=== PATIENT | male | born 1960 | race Caucasian/White ===

== ENCOUNTER 2017-01-15 15:11 | Inpatient (IN) | payer BC ==
[2017-01-15] MEDS ORDERED: Albuterol-Ipratrop 3 mg / 0.5 (3 ml) UD IH STA (15:48)
[2017-01-15] MEDS ORDERED: Albuterol-Ipratrop 3 mg / 0.5 (3 ml) UD ONE (16:04)
[2017-01-15 16:08] LABS: BASO # 0.1 K/uL (0.0-0.2); BASO % 0.4 % (0.0-2.0); EOS # 0.1 K/uL (0.0-0.7); HEMATOCRIT 41.8 % (35.0-51.0); LYMPH # 2.1 K/uL (1.0-4.3); LYMPH % 15.3 % (20.0-40.0); MEAN CELL VOLUME 88.7 fL (80.0-94.0); MEAN CORPUSCULAR HEMOGLOBIN 29.2 pg (27.0-31.0); MEAN PLATELET VOLUME 7.2 fL (7.2-11.7); MONO # 2.4 K/uL (0.0-0.8); MONO % 17.8 % (0.0-10.0); NRBC % 0.1 % (0.0-2.0); RED CELL DISTRIBUTION WIDTH 12.5 % (11.5-14.5)
[2017-01-15 16:09] LABS: WHITE BLOOD COUNT 13.6 K/uL (4.8-10.8)
[2017-01-15 16:21] LABS: DRAW SITE LBA
[2017-01-15 16:21] LABS: ALKALINE PHOSPHATASE 87 U/L (38-126); ALT/SGPT 38 U/L (21-72); AST/SGOT 26 U/L (17-59); BILIRUBIN,TOTAL 0.7 mg/dL (0.2-1.3); BLOOD UREA NITROGEN 13 mg/dL (9-20); CALCIUM 8.9 mg/dl (8.6-10.4); CARBON DIOXIDE 31 mmol/L (22-30); CHLORIDE 92 mmol/L (98-107); GFR AFRICAN-AMERICAN > 60; GLUCOSE,RANDOM 86 mg/dL (75-110); POTASSIUM 4.2 mmol/L (3.6-5.2); SODIUM 133 mmol/L (132-148); TOTAL PROTEIN 8.3 g/dL (6.3-8.3)
[2017-01-15 16:22] LABS: ALB/GLOB RATIO 1.1 (1.0-2.1)
[2017-01-15] MEDS ORDERED: Vancomycin 1 gm/NS 200 ml 1 GM/200 ML BAG IVPB STA (17:18)
[2017-01-15] MEDS ORDERED: Piperacillin/Tazobact 3.375 gm 100 ML IVPB STA (17:18)
--- NOTE | 2017-01-15 17:24 | C.PDOC ---
Time Seen by Provider: 01/15/17 15:37 Chief Complaint (Nursing): Shortness Of Breath History Per: Patient, Family Onset/Duration Of Symptoms: Days (1 week) Current Symptoms Are (Timing): Worse Current Respiratory Medications: See Home Med List Severity: Severe Associated Symptoms: Productive Cough Additional History Per: Prior Records Past Medical History Reviewed: Historical Data, Nursing Documentation, Vital Signs Vital Signs: Last Vital Signs Temp 99.1 F 01/15/17 15:22 Pulse 113 H 01/15/17 16:33 Resp 30 H 01/15/17 16:33 BP 138/81 01/15/17 15:22 Pulse Ox 88 L 01/15/17 17:24 - Medical History PMH: Anxiety, Asthma, COPD, Emphysema, HTN, Pneumonia Other PMH: Bronchiectasis - [facility] Procedures INFLUENZA VACCINATION (11/13/13) NEBULIZER THERAPY (06/28/14) VACCINATION NEC (11/13/13) Family History: States: Unknown Family Hx - Social History Hx Tobacco Use: No Hx Alcohol Use: No Hx Substance Use: No - Immunization History Hx Tetanus Toxoid Vaccination: No Hx Influenza Vaccination: Yes Hx Pneumococcal Vaccination: No Review Of Systems Except As Marked, All Systems Reviewed And Found Negative. Constitutional: Positive for: Fever, Chills, Malaise ENT: Negative for: Nose Congestion, Throat Pain Cardiovascular: Negative for: Chest Pain Respiratory: Positive for: Cough, Shortness of Breath, Sputum. Negative for: Hemoptysis Gastrointestinal: Negative for: Vomiting, Abdominal Pain Musculoskeletal: Positive for: Back Pain (right upper). Negative for: Neck Pain , Leg Pain Skin: Negative for: Rash Neurological: Negative for: Weakness, Numbness Physical Exam - Physical Exam Appears: In Acute Distress, Chronically Ill Skin: Normal Color, Warm, Dry Head: Atraumatic, Normacephalic Eye(s): bilateral: PERRL, EOMI Neck: Normal ROM, Supple Cardiovascular: Rhythm Regular Respiratory: No Accessory Muscle Use, Rhonchi Gastrointestinal/Abdominal: Soft, No Tenderness Back: No CVA Tenderness Extremity: Normal ROM, No Calf Tenderness Neurological/Psych: Oriented x3, Normal Motor, Normal Sensation ED Course And Treatment - Laboratory Results Result Diagrams: 01/15/17 16:00 01/15/17 16:00 Lab Interpretation: Abnormal Interpretation Of Abnormal: Mild leukocytosis. O2 Sat by Pulse Oximetry: 88 Pulse Ox Interpretation: Abnormal Interpretation Of Abnormal: Hypoxia on RA - Radiology CXR: Interpreted by Me, Viewed By Me CXR Interpretation: Yes: Infiltrates Progress - Interventions Interventions:: Observation, Oxygen - Medications Administered Inhaled nebulized: Anticholinergic, Beta-2 agonist Intravenous: Corticosteroid, Other (Abx) - Data Reviewed Data Reviewed: Lab, Diagnostic imaging, Old records - Patient Status Patient status: Partially improved - Continuity of Care Discussed patient case with:: Patient, Family-HIPPA compliant, ED Nurse, PMD - Patient Plan Patient Plan: Admission Disposition Discussed With DrJose: Georgia Christopher Comment: He accepted pt on his service and wanted pt to received Solumedrol 125mg IV and be started on Zosyn and Vancomycin. Doctor Will See Patient In The: Hospital Counseled Patient/Family Regarding: Studies Performed, Diagnosis - Disposition Disposition: HOSPITALIZED Disposition Time: 17:26 Condition: GUARDED - Clinical Impression Clinical Impression: Bronchiectasis with acute exacerbation, Acute lower respiratory tract infection
[2017-01-15] MEDS: Piperacill/Tazo 3.375gm in Dex 3.375 GM/50 ML BAG IVPB STA ×2 (17:45→17:48)
--- NOTE | 2017-01-15 17:46 | RAD ---
PROCEDURE: CHEST RADIOGRAPH, 1 VIEW. HISTORY: SOB, productive cough, h/o bronchiectasis COMPARISON: Comparison made with prior chest radiograph 04/20/[address] scan chest dated 11/08/2013. FINDINGS: LUNGS: Bronchiectasis again seen in the mid to lower lung arechiga including the middle lobe, lingular region as well as right anterior upper lobe. Note these findings are seen to much better advantage on prior high-resolution CT scan. Changes are somewhat more confluent in the lower lung arechiga right greater than left which could be secondary to poor inspiration however superimposed pneumonia cannot be excluded. PLEURA: No pneumothorax or pleural fluid seen. CARDIOVASCULAR: Normal. OSSEOUS STRUCTURES: No significant abnormalities. VISUALIZED UPPER ABDOMEN: Normal. OTHER FINDINGS: None. IMPRESSION: Bronchiectasis again seen in the mid to lower lung arechiga including the middle lobe, lingular region as well as right anterior upper lobe. Note these findings are seen to much better advantage on prior high-resolution CT scan. Changes are somewhat more confluent in the lower lung arechiga right greater than left which could be secondary to poor inspiration however superimposed pneumonia cannot be excluded
[2017-01-15] MEDS: Piperacill/Tazo 3.375gm in Dex 3.375 GM/50 ML BAG IVPB SCH (17:48)
--- NOTE | 2017-01-15 18:09 | CP.PCM.CON ---
History of Present Illness - History of Present Illness History of Present Illness: reason for consultation: shortness of breath, productive cough Patient is a 56-year-old male with history of end-stage bronchiectasis on home oxygen, COPDpresented to emergency room with worsening shortness of breath and cough productive off purulent sputum for the past few days. Denies fever chills. Chest x-ray consistent with right lower lung pneumonia Review of Systems - Review of Systems All systems: reviewed and no additional remarkable complaints except (shortness of breath and productive cough) Past Patient History - Infectious Disease Hx of Infectious Diseases: None - Past Medical History & Family History Past Medical History?: Yes - Past Social History Smoking Status: Never Smoked - CARDIAC Hx Hypertension: Yes - PULMONARY Hx Asthma: Yes Hx Chronic Obstructive Pulmonary Disease (COPD): Yes Hx Emphysema: Yes Hx Pneumonia: Yes - NEUROLOGICAL Hx Neurological Disorder: No - HEENT Hx HEENT Problems: No - RENAL Hx Chronic Kidney Disease: No - ENDOCRINE/METABOLIC Hx Endocrine Disorders: No - HEMATOLOGICAL/ONCOLOGICAL Hx Blood Disorders: No - INTEGUMENTARY Hx Dermatological Problems: No - MUSCULOSKELETAL/RHEUMATOLOGICAL Hx Musculoskeletal Disorders: No - GASTROINTESTINAL Hx Gastrointestinal Disorders: No - GENITOURINARY/GYNECOLOGICAL Hx Genitourinary Disorders: No - PSYCHIATRIC Hx Anxiety: Yes Hx Substance Use: No - SURGICAL HISTORY Hx Surgeries: Yes Hx Orthopedic Surgery: Yes (dental and jaw surgery) - ANESTHESIA Hx Anesthesia: Yes Hx Anesthesia Reactions: No Hx Malignant Hyperthermia: No Meds Allergies/Adverse Reactions: Allergies Allergy/AdvReac Type Severity Reaction Status Date / Time No Known Allergies Allergy Verified 01/15/17 15:28 - Medications Medications: Current Medications Vancomycin/Sodium Chloride (Vancomycin 1 Gm/Ns 200 Ml) 1 gm in 200 mls @ 166.667 mls/hr IVPB STAT [facility] Stop: 01/15/17 18:29 Physical Exam - Head Exam Head Exam: ATRAUMATIC, NORMOCEPHALIC - ENT Exam ENT Exam: Mucous Membranes Moist - Neck Exam Neck exam: Positive for: Normal Inspection - Respiratory Exam Respiratory Exam: Rales Results - Vital Signs Recent Vital Signs: Last Vital Signs Temp 99.1 F 01/15/17 15:22 Pulse 115 H 01/15/17 17:34 Resp 28 H 01/15/17 17:34 BP 111/69 01/15/17 17:34 Pulse Ox 95 01/15/17 17:34 - Labs Result Diagrams: 01/15/17 16:00 01/15/17 16:00 Labs: Laboratory Results - last 24 hr 01/15/17 01/15/17 01/15/17 15:46 16:00 16:00 WBC 13.6 H D RBC 4.71 Hgb 13.8 Hct 41.8 MCV 88.7 MCH 29.2 MCHC 33.0 RDW 12.5 Plt Count 545 H D MPV 7.2 Neut % (Auto) 65.5 Lymph % (Auto) 15.3 L [place] % (Auto) 17.8 H Eos % (Auto) 1.0 Baso % (Auto) 0.4 Neut # 8.9 H Lymph # 2.1 [place] # 2.4 H Eos # 0.1 Baso # 0.1 Puncture Site pCO2 pO2 HCO3 ABG pH ABG Total CO2 ABG O2 Saturation ABG Base Excess Hima Test ABG Potassium A-a O2 Difference Respiratory Index Glucose Lactate Liter Flow FiO2 Sodium 133 Potassium 4.2 Chloride 92 L Carbon Dioxide 31 H Anion Gap 15 BUN 13 Creatinine 0.9 Est GFR ( Amer) > 60 Est GFR (Non-Af Amer) > 60 Random Glucose 86 Calcium 8.9 Total Bilirubin 0.7 AST 26 ALT 38 Alkaline Phosphatase 87 Troponin I < 0.0120 NT-Pro-B Natriuret Pep 183 Total Protein 8.3 Albumin 4.3 Globulin 4.0 H Albumin/Globulin Ratio 1.1 Arterial Blood Potassium Influenza Typ A,B (EIA) Negative for flu a/b 01/15/17 16:15 WBC RBC Hgb Hct MCV MCH MCHC RDW Plt Count MPV Neut % (Auto) Lymph % (Auto) [place] % (Auto) Eos % (Auto) Baso % (Auto) Neut # Lymph # [place] # Eos # Baso # Puncture Site Lba pCO2 50 H pO2 211 H HCO3 28.9 H ABG pH 7.40 ABG Total CO2 32.5 H ABG O2 Saturation 98.7 H ABG Base Excess 5.0 H Hima Test Na ABG Potassium 3.8 A-a O2 Difference -38.0 Respiratory Index -0.2 Glucose 90 Lactate 1.2 Liter Flow 3.0 FiO2 33.0 Sodium 136.0 Potassium Chloride 103.0 Carbon Dioxide Anion Gap BUN Creatinine Est GFR ( Amer) Est GFR (Non-Af Amer) Random Glucose Calcium Total Bilirubin AST ALT Alkaline Phosphatase Troponin I NT-Pro-B Natriuret Pep Total Protein Albumin Globulin Albumin/Globulin Ratio Arterial Blood Potassium 3.8 Influenza Typ A,B (EIA) Assessment & Plan (1) Pneumonia Status: Acute (2) Bronchiectasis Status: Acute Priority: High (3) COPD exacerbation Status: Acute
[2017-01-15] MEDS: Albuterol-Ipratrop 3 mg / 0.5 (3 ml) UD INH SCH (19:00)
[2017-01-15] MEDS: MethylPREDNISolone 40 mg Vial IV SCH (22:29)
[2017-01-16] MEDS: Piperacill/Tazo 3.375gm in Dex 3.375 GM/50 ML BAG IVPB SCH ×3 (01:33→18:09)
[2017-01-16] MEDS: Albuterol-Ipratrop 3 mg / 0.5 (3 ml) UD INH SCH ×4 (02:27→19:49)
--- NOTE | 2017-01-16 05:34 | HP ---
HISTORY OF PRESENT ILLNESS: This is a 56-year-old male with history of longstanding obstructive lung disease and bronchiectasis. The patient presented to emergency room with symptoms of increasing shortness of breath, cough and production of sputum that has been progressive over the last 4 weeks. During the last 2 days prior to this admission, the patient was experiencing fever and chills. The patient was evaluated in the emergency room and admitted for further management. The patient had previous similar presentations and admissions to the hospital for the same problem. REVIEW OF SYSTEMS: Other review of system are negative. ALLERGIES: NO KNOWN ALLERGY. HOME MEDICATIONS: Clonazepam 0.5 mg three times a day as needed, multivitamin 1 tablet daily, Brovana by nebulizer every 6 hours and Ventolin MDI. SOCIAL HISTORY: No history of smoking, EtOH or substance abuse. FAMILY HISTORY: Not contributory. PAST MEDICAL HISTORY: As above. PHYSICAL EXAMINATION: GENERAL: The patient is in bed comfortable at the time of this examination. VITAL SIGNS: Blood pressure 104/57, temperature 98.1, respiratory rate 30 and pulse 103. HEENT: Pupils equal, reactive to light. Normal-appearing mucosa of the conjunctivae, oropharyngeal and nasal membrane mucosa. NECK: Supple. No JVD. No carotid bruit. No lymph node. No thyromegaly. CHEST AND LUNGS: Bilateral symmetrical expansion. Good air exchange. No rales. The patient has scattered rhonchi all over lung arechiga with coarse rales that change with cough. CARDIOVASCULAR SYSTEM: PMI not localized. S1 and S2. No additional sounds. ABDOMEN: Normoactive bowel sounds. No tenderness. No organomegaly. No masses. EXTREMITIES: No cyanosis, no clubbing, no edema. CENTRAL NERVOUS SYSTEM: Alert, awake, oriented x3. No neurological deficit could be appreciated. ASSESSMENT: 1. Bronchiectasis. 2. Exacerbation of chronic obstructive pulmonary disease. 3. Clinical pneumonia. PLAN: 1. We will start the patient on IV antibiotics, Zosyn and vancomycin. 2. Start Solu-Medrol. 3. Pulmonary consult. 4. Nebulizer treatment and chest PT. Georgia Christopher MD
[2017-01-16] MEDS: MethylPREDNISolone 40 mg Vial IV SCH ×3 (05:42→21:43)
[2017-01-16] MEDS: Vancomycin 1 gm/NS 200 ml 1 GM/200 ML BAG IVPB SCH ×2 (05:45→18:10)
[2017-01-16] MEDS: Enoxaparin 30 mg Syringe SC SCH (09:38)
--- NOTE | 2017-01-16 18:47 | CP.PCM.PN ---
Subjective - Date & Time of Evaluation Date of Evaluation: 01/16/17 Time of Evaluation: 17:20 - Subjective Subjective: patient seen and examined Feeling little better Still complaining of productive cough Less shortness of breath Afebrile Objective - Vital Signs/Intake and Output Vital Signs (last 24 hours): Temp Pulse Resp BP Pulse Ox 97.9 F 103 H 20 127/68 93 L 01/16/17 16:51 01/16/17 16:51 01/16/17 16:51 01/16/17 16:51 01/16/17 16:51 Intake and Output: 01/16/17 01/16/17 06:59 18:59 Intake Total 730 550 Balance 730 550 - Medications Medications: Current Medications Albuterol/Ipratropium (Duoneb 3 Mg/0.5 Mg (3 Ml) Ud) 3 ml INH RQ6 [facility] Last Admin: 01/16/17 13:13 Dose: 3 ml Clonazepam (Klonopin) 0.5 mg PO Q8H PRN PRN Reason: Anxiety Last Admin: 01/16/17 01:38 Dose: 0.5 mg Enoxaparin Sodium (Lovenox) 30 mg SC DAILY [facility] Last Admin: 01/16/17 09:38 Dose: 30 mg Famotidine (Pepcid) 20 mg IVP Q12 [facility] Last Admin: 01/16/17 09:38 Dose: 20 mg Vancomycin/Sodium Chloride (Vancomycin 1 Gm/Ns 200 Ml) 1 gm in 200 mls @ 133 mls/hr IVPB Q12H [facility] Stop: 01/21/17 06:01 Last Admin: 01/16/17 18:10 Dose: 133 mls/hr Piperacillin Sod/Tazobactam Sod (Zosyn 3.375 Gm Iv Premix) 3.375 gm in 50 mls @ 200 mls/hr IVPB Q8H [facility] Last Admin: 01/16/17 18:09 Dose: 200 mls/hr Methylprednisolone (Solu-Medrol) 40 mg IV Q8 [facility] Last Admin: 01/16/17 13:32 Dose: 40 mg - Labs Labs: 01/15/17 16:00 01/15/17 16:00 Assessment and Plan (1) Pneumonia Status: Acute (2) Bronchiectasis Status: Acute (3) COPD exacerbation Status: Acute
--- NOTE | 2017-01-16 20:24 | PN ---
DATE: 01/16/2017 SUBJECTIVE: He has wheezing and shortness of breath and cough which are generally improving. PHYSICAL EXAMINATION: VITAL SIGNS: Blood pressure is 127/68, temperature 97.9, respiratory rate 20, and pulse 103. HEENT: Pupils equal, reactive to light. Normal-appearing mucosa of the conjunctivae, oropharynx, and nasal membrane mucosa. NECK: Supple. No JVD. No carotid bruit. No lymph node. No thyromegaly. CHEST AND LUNGS: Bilateral symmetrical expansion. Good air exchange. Bilateral rhonchi scattered all over lung arechiga. CARDIOVASCULAR SYSTEM: PMI not localized. S1 and S2. No additional sounds. ABDOMEN: Normoactive bowel sounds. No tenderness. No organomegaly. No masses. EXTREMITIES: No cyanosis. No clubbing. No edema. CENTRAL NERVOUS SYSTEM: Alert, awake, oriented x3. No neurological deficit could be appreciated. ASSESSMENT: Exacerbation of chronic obstructive pulmonary disease, bronchiectasis, and pneumonia. PLAN: Continue current IV antibiotics, steroids, and bronchodilators. Discussed the patients' condition with construction administrator, Dr. Trinh, at the bedside. Georgia Christopher MD
[2017-01-17] MEDS: Piperacill/Tazo 3.375gm in Dex 3.375 GM/50 ML BAG IVPB SCH ×3 (01:35→17:38)
[2017-01-17] MEDS: Albuterol-Ipratrop 3 mg / 0.5 (3 ml) UD INH SCH ×4 (02:01→19:18)
[2017-01-17] MEDS: MethylPREDNISolone 40 mg Vial IV SCH ×3 (05:37→21:51)
[2017-01-17] MEDS: Vancomycin 1 gm/NS 200 ml 1 GM/200 ML BAG IVPB SCH ×2 (05:38→17:26)
[2017-01-17] MEDS: Enoxaparin 30 mg Syringe SC SCH (09:56)
--- NOTE | 2017-01-17 11:55 | CP.PCM.PN ---
Objective - Vital Signs/Intake and Output Vital Signs (last 24 hours): Temp Pulse Resp BP Pulse Ox 98.2 F 81 20 104/52 L 97 01/17/17 00:00 01/17/17 00:00 01/17/17 00:00 01/17/17 00:00 01/17/17 00:00 Intake and Output: 01/17/17 01/17/17 06:59 18:59 Intake Total 940 Balance 940 - Medications Medications: Current Medications Albuterol/Ipratropium (Duoneb 3 Mg/0.5 Mg (3 Ml) Ud) 3 ml INH RQ6 [facility] Last Admin: 01/17/17 07:31 Dose: Not Given Clonazepam (Klonopin) 0.5 mg PO Q8H PRN PRN Reason: Anxiety Last Admin: 01/17/17 03:00 Dose: 0.5 mg Enoxaparin Sodium (Lovenox) 30 mg SC DAILY [facility] Last Admin: 01/17/17 09:56 Dose: 30 mg Famotidine (Pepcid) 20 mg IVP Q12 [facility] Last Admin: 01/17/17 09:56 Dose: 20 mg Vancomycin/Sodium Chloride (Vancomycin 1 Gm/Ns 200 Ml) 1 gm in 200 mls @ 133 mls/hr IVPB Q12H [facility] Stop: 01/21/17 06:01 Last Admin: 01/17/17 05:38 Dose: 133 mls/hr Piperacillin Sod/Tazobactam Sod (Zosyn 3.375 Gm Iv Premix) 3.375 gm in 50 mls @ 200 mls/hr IVPB Q8H [facility] Last Admin: 01/17/17 09:55 Dose: 200 mls/hr Methylprednisolone (Solu-Medrol) 40 mg IV Q8 [facility] Last Admin: 01/17/17 05:37 Dose: 40 mg - Labs Labs: 01/15/17 16:00 01/15/17 16:00 Assessment and Plan (1) Pneumonia Status: Acute (2) Bronchiectasis Status: Acute (3) COPD exacerbation Status: Acute
[2017-01-17 12:10] LABS: BASO % 0.1 % (0.0-2.0); LYMPH # 0.8 K/uL (1.0-4.3); LYMPH % 3.3 % (20.0-40.0); MEAN CELL VOLUME 89.2 fL (80.0-94.0); MEAN CORPUSCULAR HEMOGLOBIN 29.7 pg (27.0-31.0); MEAN CORPUSCULAR HGB CONC 33.3 g/dL (33.0-37.0); MEAN PLATELET VOLUME 7.1 fL (7.2-11.7); MONO # 0.8 K/uL (0.0-0.8); MONO % 3.3 % (0.0-10.0); PLATELET COUNT 499 K/uL (130-400); RED CELL DISTRIBUTION WIDTH 12.3 % (11.5-14.5)
[2017-01-17 12:13] LABS: WHITE BLOOD COUNT 24.4 K/uL (4.8-10.8)
[2017-01-17 13:24] LABS: MYELOCYTE 1 % (0-0); NEUTROPHIL 84 % (50-75); TOTAL CELLS COUNTED 100
[2017-01-17 13:43] LABS: BLOOD UREA NITROGEN 16 mg/dL (9-20); GLUCOSE,RANDOM 154 mg/dL (75-110)
[2017-01-17 13:44] LABS: CALCIUM 8.5 mg/dl (8.6-10.4); CARBON DIOXIDE 30 mmol/L (22-30); CHLORIDE 97 mmol/L (98-107); GFR AFRICAN-AMERICAN > 60; POTASSIUM 4.3 mmol/L (3.6-5.2); SODIUM 135 mmol/L (132-148)
[2017-01-18] MEDS: Piperacill/Tazo 3.375gm in Dex 3.375 GM/50 ML BAG IVPB SCH ×3 (01:39→17:43)
[2017-01-18] MEDS: Albuterol-Ipratrop 3 mg / 0.5 (3 ml) UD INH SCH ×4 (02:18→19:34)
[2017-01-18] MEDS: MethylPREDNISolone 40 mg Vial IV SCH ×3 (06:00→21:49)
[2017-01-18] MEDS: Vancomycin 1 gm/NS 200 ml 1 GM/200 ML BAG IVPB SCH ×2 (06:03→17:45)
--- NOTE | 2017-01-18 07:09 | PN ---
DATE: 01/17/2017 SUBJECTIVE: He is not on any decrease shortness of breath and cough and expectoration. PHYSICAL EXAMINATION: VITAL SIGNS: Blood pressure 117/75, temperature 98.1, respiratory rate 20, and pulse 103. HEENT: Pupils equal, reactive to light. Normal-appearing mucosa of the conjunctivae, oropharynx, and nasal membrane mucosa. NECK: Supple. No JVD. No carotid bruit. No lymph node. No thyromegaly. CHEST AND LUNGS: Bilateral symmetrical expansion. Good air exchange. No rales. No rhonchi. CARDIOVASCULAR SYSTEM: PMI not localized. S1, S2. No additional sounds. ABDOMEN: Normoactive bowel sounds. No tenderness. No organomegaly. No masses. EXTREMITIES: No cyanosis. No clubbing. No edema. CENTRAL NERVOUS SYSTEM: Alert, awake, oriented x3. No neurological deficit could be appreciated. ASSESSMENT: Exacerbation of chronic obstructive pulmonary disease, history of bronchiectasis, and pneumonia. PLAN: Continue current steroids, bronchodilators as well as antibiotics. The patient is getting chest physiotherapy through vibrating vest. Continue further recommendation of manager of sustainability. Georgia Christopher MD
[2017-01-18] MEDS: Enoxaparin 30 mg Syringe SC SCH (10:22)
--- NOTE | 2017-01-18 15:49 | CP.PCM.PN ---
Subjective - Date & Time of Evaluation Date of Evaluation: 01/18/17 Time of Evaluation: 09:20 - Subjective Subjective: Patient seen and examined Breathing better with less shortness of breath and cough Afebrile On IV antibiotics, nebulizer treatment and steroids Getting vest therapy Objective - Vital Signs/Intake and Output Vital Signs (last 24 hours): Temp Pulse Resp BP Pulse Ox 98.5 F 91 H 20 128/68 96 01/18/17 08:00 01/18/17 08:00 01/18/17 08:00 01/18/17 08:00 01/18/17 08:00 Intake and Output: 01/18/17 01/18/17 06:59 18:59 Intake Total 2160 Output Total 500 Balance 1660 - Medications Medications: Current Medications Albuterol/Ipratropium (Duoneb 3 Mg/0.5 Mg (3 Ml) Ud) 3 ml INH RQ6 [facility] Last Admin: 01/18/17 14:26 Dose: 3 ml Clonazepam (Klonopin) 0.5 mg PO Q8H PRN PRN Reason: Anxiety Last Admin: 01/17/17 03:00 Dose: 0.5 mg Enoxaparin Sodium (Lovenox) 30 mg SC DAILY [facility] Last Admin: 01/18/17 10:22 Dose: 30 mg Famotidine (Pepcid) 20 mg IVP Q12 [facility] Last Admin: 01/18/17 09:54 Dose: 20 mg Vancomycin/Sodium Chloride (Vancomycin 1 Gm/Ns 200 Ml) 1 gm in 200 mls @ 133 mls/hr IVPB Q12H [facility] Stop: 01/18/17 20:00 Last Admin: 01/18/17 06:03 Dose: 133 mls/hr Piperacillin Sod/Tazobactam Sod (Zosyn 3.375 Gm Iv Premix) 3.375 gm in 50 mls @ 200 mls/hr IVPB Q8H [facility] Last Admin: 01/18/17 09:57 Dose: 200 mls/hr Vancomycin HCl 1 gm/ Sodium (Chloride) 250 mls @ 166.667 mls/hr IVPB Q12H [facility] Stop: 01/21/17 06:01 Methylprednisolone (Solu-Medrol) 40 mg IV Q8 [facility] Last Admin: 01/18/17 14:25 Dose: 40 mg - Labs Labs: 01/17/17 11:48 11/27/17 11:48 - Head Exam Head Exam: ATRAUMATIC, NORMOCEPHALIC - Eye Exam Eye Exam: Normal appearance - ENT Exam ENT Exam: Mucous Membranes Moist - Neck Exam Neck Exam: Normal Inspection - Respiratory Exam Respiratory Exam: Rales - Cardiovascular Exam Cardiovascular Exam: REGULAR RHYTHM - GI/Abdominal Exam GI & Abdominal Exam: Soft, Normal Bowel Sounds Assessment and Plan (1) Pneumonia Assessment & Plan: Continue IV antibiotics Follow-up chest x-ray Taper IV steroids Nebulizer treatment Status: Acute (2) Bronchiectasis Status: Acute (3) COPD exacerbation Status: Acute
--- NOTE | 2017-01-18 23:25 | PN ---
DATE: 01/18/2017 SUBJECTIVE: Patient is seen today, 01/18/2017. He is still having cough with expectoration of white sputum. No fever. Positive exertional shortness of breath. PHYSICAL EXAMINATION: VITAL SIGNS: Blood pressure 132/61, temperature 98.2, respiratory rate 20, and pulse 97. HEENT: Pupils equal, reactive to light. Normal-appearing mucosa of the conjunctivae, oropharynx, and nasal membrane mucosa. NECK: Supple. No JVD. No carotid bruit. No lymph node. No thyromegaly. CHEST AND LUNGS: Bilateral symmetrical expansion. Good air exchange. No rales. Patient has scattered rhonchi all over lung arechiga. CARDIOVASCULAR SYSTEM: PMI not localized. S1, S2. No additional sounds. ABDOMEN: Normoactive bowel sounds. No tenderness. No organomegaly. No masses. EXTREMITIES: No cyanosis, no clubbing, no edema. CENTRAL NERVOUS SYSTEM: Alert, awake, oriented x3. No neurological deficit could be appreciated. ASSESSMENT: 1. Exacerbation of chronic obstructive pulmonary disease. 2. Bronchiectasis. 3. Pneumonia. PLAN: Continue current IV antibiotics, chest physiotherapy, bronchodilators, and steroids. Georgia Christopher MD
[2017-01-19] MEDS: Albuterol-Ipratrop 3 mg / 0.5 (3 ml) UD INH SCH ×4 (01:17→19:44)
[2017-01-19 01:36] VITALS: RESP 20
[2017-01-19] MEDS: Piperacill/Tazo 3.375gm in Dex 3.375 GM/50 ML BAG IVPB SCH ×3 (02:35→18:11)
[2017-01-19] MEDS: MethylPREDNISolone 40 mg Vial IV SCH ×2 (06:43→18:10)
[2017-01-19] MEDS: Enoxaparin 30 mg Syringe SC SCH (10:19)
--- NOTE | 2017-01-19 14:17 | CP.PCM.PN ---
Subjective - Date & Time of Evaluation Date of Evaluation: 01/19/17 Time of Evaluation: 10:00 - Subjective Subjective: patient seen and examined Breathing much better Afebrile No chest pain On antibiotics IV steroids and nebulizer Objective - Vital Signs/Intake and Output Vital Signs (last 24 hours): Temp Pulse Resp BP Pulse Ox 98.2 F 93 H 20 107/62 96 01/19/17 08:00 01/19/17 08:00 01/19/17 08:00 01/19/17 08:00 01/19/17 08:00 Intake and Output: 01/19/17 01/19/17 06:59 18:59 Intake Total 2210 Output Total 400 Balance 1810 - Medications Medications: Current Medications Albuterol/Ipratropium (Duoneb 3 Mg/0.5 Mg (3 Ml) Ud) 3 ml INH RQ6 [facility] Last Admin: 01/19/17 13:36 Dose: 3 ml Clonazepam (Klonopin) 0.5 mg PO Q8H PRN PRN Reason: Anxiety Last Admin: 01/17/17 03:00 Dose: 0.5 mg Enoxaparin Sodium (Lovenox) 30 mg SC DAILY [facility] Last Admin: 01/19/17 10:19 Dose: 30 mg Famotidine (Pepcid) 20 mg IVP Q12 [facility] Last Admin: 01/19/17 10:18 Dose: 20 mg Piperacillin Sod/Tazobactam Sod (Zosyn 3.375 Gm Iv Premix) 3.375 gm in 50 mls @ 200 mls/hr IVPB Q8H [facility] Last Admin: 01/19/17 10:19 Dose: 200 mls/hr Vancomycin HCl 1 gm/ Sodium (Chloride) 250 mls @ 166.667 mls/hr IVPB Q12H [facility] Stop: 01/21/17 06:01 Last Admin: 01/19/17 06:44 Dose: 166.667 mls/hr Methylprednisolone (Solu-Medrol) 40 mg IV Q12H [facility] - Labs Labs: 01/17/17 11:48 01/17/17 11:48 - Head Exam Head Exam: ATRAUMATIC, NORMOCEPHALIC - Eye Exam Eye Exam: Normal appearance - ENT Exam ENT Exam: Mucous Membranes Moist - Neck Exam Neck Exam: Normal Inspection - Respiratory Exam Respiratory Exam: Rales, Rhonchi, Wheezes - Cardiovascular Exam Cardiovascular Exam: REGULAR RHYTHM - GI/Abdominal Exam GI & Abdominal Exam: Soft, Normal Bowel Sounds Assessment and Plan (1) Pneumonia Assessment & Plan: Continue IV antibiotics Continue nebulizer treatment Continue steroids Status: Acute (2) Bronchiectasis Status: Acute (3) COPD exacerbation Status: Acute
--- NOTE | 2017-01-20 01:09 | PN ---
DATE: 01/19/2017 The patient is seen today,01/19/2017. There is decreased shortness of breath, cough and wheezing. PHYSICAL EXAMINATION VITAL SIGNS: Blood pressure is 128/71, temperature 98.4, respiratory rate 20 and pulse 74. HEENT: Pupils equal, reactive to light. Normal-appearing mucosa of the conjunctivae, oropharynx and nasal membrane mucosa. NECK: Supple. No JVD. No carotid bruit. No lymph node. No thyromegaly. CHEST/LUNGS: Bilateral symmetrical expansion. Good air exchange. No rales, no rhonchi. CARDIOVASCULAR SYSTEM: PMI not localized. S1, S2. No additional sounds. ABDOMEN: Normoactive bowel sounds. No tenderness. No organomegaly. No masses. EXTREMITIES: No cyanosis, no clubbing, no edema. CENTRAL NERVOUS SYSTEM: Alert, awake, oriented x3. No neurological deficit could be appreciated. ASSESSMENT: 1. Exacerbation of chronic obstructive pulmonary disease. 2. Bronchiectasis. 3. Pneumonia. PLAN: Continue current IV antibiotics and steroid and bronchodilators. Follow Pulmonary recommendations. Georgia Christopher MD
[2017-01-20] MEDS: Albuterol-Ipratrop 3 mg / 0.5 (3 ml) UD INH SCH ×4 (01:28→19:00)
[2017-01-20] MEDS: Piperacill/Tazo 3.375gm in Dex 3.375 GM/50 ML BAG IVPB SCH ×3 (02:25→17:34)
[2017-01-20] MEDS: MethylPREDNISolone 40 mg Vial IV SCH ×2 (06:16→17:33)
[2017-01-20 07:42] LABS: BASO % 0.1 % (0.0-2.0); HEMATOCRIT 39.2 % (35.0-51.0); LYMPH # 1.5 K/uL (1.0-4.3); LYMPH % 9.4 % (20.0-40.0); MEAN CORPUSCULAR HGB CONC 32.2 g/dL (33.0-37.0); MEAN PLATELET VOLUME 6.9 fL (7.2-11.7); MONO # 1.2 K/uL (0.0-0.8); MONO % 7.1 % (0.0-10.0); PLATELET COUNT 498 K/uL (130-400); RED CELL DISTRIBUTION WIDTH 12.5 % (11.5-14.5); WHITE BLOOD COUNT 16.3 K/uL (4.8-10.8)
[2017-01-20 08:07] LABS: BLOOD UREA NITROGEN 18 mg/dL (9-20); CALCIUM 8.6 mg/dl (8.6-10.4); CARBON DIOXIDE 36 mmol/L (22-30); CHLORIDE 96 mmol/L (98-107); GFR AFRICAN-AMERICAN > 60; GLUCOSE,RANDOM 86 mg/dL (75-110); SODIUM 140 mmol/L (132-148)
[2017-01-20 09:41] LABS: METAMYELOCYTE 1 % (0-0); MYELOCYTE 3 % (0-0); NEUTROPHIL 76 % (50-75); REACTIVE LYMPHOCYTES 1 % (0-0); TOTAL CELLS COUNTED 100
[2017-01-20] MEDS: Enoxaparin 30 mg Syringe SC SCH (11:01)
--- NOTE | 2017-01-20 13:12 | CP.PCM.PN ---
Subjective - Date & Time of Evaluation Date of Evaluation: 01/20/17 Time of Evaluation: 08:00 - Subjective Subjective: the patient seen and examined Breathing and cough much improved Getting treatment and antibiotics Objective - Vital Signs/Intake and Output Vital Signs (last 24 hours): Temp Pulse Resp BP Pulse Ox 98.0 F 69 20 137/81 99 01/20/17 08:34 01/20/17 08:34 01/20/17 08:34 01/20/17 08:34 01/20/17 08:34 Intake and Output: 01/20/17 01/20/17 06:59 18:59 Intake Total 1070 Output Total 500 Balance 570 - Medications Medications: Current Medications Albuterol/Ipratropium (Duoneb 3 Mg/0.5 Mg (3 Ml) Ud) 3 ml INH RQ6 [facility] Last Admin: 01/20/17 09:10 Dose: Not Given Clonazepam (Klonopin) 0.5 mg PO Q8H PRN PRN Reason: Anxiety Last Admin: 01/19/17 21:20 Dose: 0.5 mg Enoxaparin Sodium (Lovenox) 30 mg SC DAILY [facility] Last Admin: 01/20/17 11:01 Dose: 30 mg Famotidine (Pepcid) 20 mg PO BID [facility] Last Admin: 01/20/17 11:01 Dose: 20 mg Piperacillin Sod/Tazobactam Sod (Zosyn 3.375 Gm Iv Premix) 3.375 gm in 50 mls @ 200 mls/hr IVPB Q8H [facility] Last Admin: 01/20/17 11:01 Dose: 200 mls/hr Vancomycin HCl 1 gm/ Sodium (Chloride) 250 mls @ 166.667 mls/hr IVPB Q12H [facility] Stop: 01/21/17 06:01 Last Admin: 01/20/17 06:17 Dose: 166.667 mls/hr Methylprednisolone (Solu-Medrol) 40 mg IV Q12H [facility] Last Admin: 01/20/17 06:16 Dose: 40 mg - Labs Labs: 01/20/17 07:14 01/20/17 07:14 - Head Exam Head Exam: ATRAUMATIC, NORMOCEPHALIC - Eye Exam Eye Exam: Normal appearance - ENT Exam ENT Exam: Mucous Membranes Moist - Neck Exam Neck Exam: Normal Inspection - Respiratory Exam Respiratory Exam: Rales, Rhonchi - Cardiovascular Exam Cardiovascular Exam: REGULAR RHYTHM - GI/Abdominal Exam GI & Abdominal Exam: Soft, Normal Bowel Sounds - Extremities Exam Extremities Exam: Full ROM Assessment and Plan (1) Pneumonia Assessment & Plan: Continue antibiotics Taper steroids Continue nebulizer treatment and stable from pulmonary standpoi Status: Acute (2) Bronchiectasis Status: Acute (3) COPD exacerbation Status: Acute
[2017-01-21] MEDS: Piperacill/Tazo 3.375gm in Dex 3.375 GM/50 ML BAG IVPB SCH ×2 (02:40→10:00)
[2017-01-21] MEDS: MethylPREDNISolone 40 mg Vial IV SCH (06:14)
[2017-01-21 07:33] VITALS: BP 111/64; PULSE 90; TEMP 98.3; O2SAT 98
--- NOTE | 2017-01-21 08:37 | PN ---
DATE: 01/20/2017 SUBJECTIVE: The patient was seen on 01/20/2017. He had improved cough, shortness of breath, and sputum production. PHYSICAL EXAMINATION: VITAL SIGNS: Blood pressure was 124/73, temperature 98.4, respiratory rate 20, and pulse 76. HEENT: Pupils equal, reactive to light. Normal-appearing mucosa of the conjunctivae, oropharynx, and nasal membrane mucosa. NECK: Supple. No JVD. No carotid bruit. No lymph node. No thyromegaly. CHEST AND LUNGS: Bilateral symmetrical expansion. Few scattered rhonchi bilaterally. CARDIOVASCULAR SYSTEM: PMI not localized. S1 and S2. No additional sounds. Abdomen: Normoactive bowel sounds. No tenderness. No organomegaly. No masses. EXTREMITIES: No cyanosis. No clubbing. No edema. CENTRAL NERVOUS SYSTEM: Alert, awake, oriented x3. No neurological deficit could be appreciated. ASSESSMENT: Pneumonia, exacerbation of chronic obstructive pulmonary disease, bronchiectasis. PLAN: Continue current medications and steroids. Follow pulmonary recommendations and discharge planning as the patient continues to improve. Discussed with staff research scientist. Georgia Christopher MD
[2017-01-21] MEDS: Enoxaparin 30 mg Syringe SC SCH (10:08)
[2017-01-21] MEDS ORDERED: Influenza Virus Vaccine 45 mcg/0.5 ml Syr (36 months - 7 yrs) IM ONE (10:15)
[2017-01-21] MEDS ORDERED: Influenza Vaccine 60 mcg/0.5 mL SYR (4YR UP) IM ONE (10:22)
--- NOTE | 2017-01-21 15:49 | CP.PCM.PN ---
Subjective - Date & Time of Evaluation Date of Evaluation: 01/21/17 Time of Evaluation: 11:00 - Subjective Subjective: Alert, oriented, no sob or chest pains. Objective - Vital Signs/Intake and Output Vital Signs (last 24 hours): Temp Pulse Resp BP Pulse Ox 98.3 F 90 20 111/64 98 01/21/17 07:30 01/21/17 07:30 01/21/17 07:30 01/21/17 07:30 01/21/17 07:30 Intake and Output: 01/21/17 01/21/17 06:59 18:59 Intake Total 780 470 Output Total 600 Balance 780 -130 - Medications Medications: Current Medications Clonazepam (Klonopin) 0.5 mg PO Q8H PRN PRN Reason: Anxiety Last Admin: 01/19/17 21:20 Dose: 0.5 mg Enoxaparin Sodium (Lovenox) 30 mg SC DAILY [facility] Last Admin: 01/21/17 10:08 Dose: 30 mg Famotidine (Pepcid) 20 mg PO BID [facility] Last Admin: 01/21/17 10:07 Dose: 20 mg Piperacillin Sod/Tazobactam Sod (Zosyn 3.375 Gm Iv Premix) 3.375 gm in 50 mls @ 200 mls/hr IVPB Q8H [facility] Last Admin: 01/21/17 10:00 Dose: 200 mls/hr Methylprednisolone (Solu-Medrol) 40 mg IV Q12H [facility] Last Admin: 01/21/17 06:14 Dose: 40 mg - Labs Labs: 01/20/17 07:14 01/20/17 07:14 Assessment and Plan - Assessment and Plan (Free Text) Assessment: Patient is seen and examined. Alert and orientedx3, no acute cough or distress noted, no wheezing. D/W DR Trinh and DR Mark Pichardo, plan to discharge home today on levaquin and tapering prednisone. Advised to follow up with PMD in 1 week. Patient has oxygen and nebulizer set up at home.
--- NOTE | 2017-01-22 13:09 | DS ---
REASON FOR ADMISSION: This is a 56-year-old male with history of multiple medical problems was admitted for exacerbation of COPD secondary to bronchiectasis due to pneumonia. COURSE OF HOSPITALIZATION: The patient was admitted to medical floor and he was started on both steroids and bronchodilators and antibiotics. The patient had pulmonary consultation done by Dr. Nash. The patient was continued on chest PT while he was in the hospital. The patient did well and he was discharged home to continue another week of p.o. antibiotics and taper off steroids. Continue with nebulizer treatment at home. Follow up with ceramic plater as an outpatient. [facility] Christopher MD
== END 2017-01-21 15:49 | disposition home or self-care (01) | DRG 190 ==
LOC: C.ER 15:11 → C.9E 17:28 → C.3T 18:19
PROVIDERS: ADMIT Internal Medicine; ATTEND Internal Medicine
DX: J44.0 Chronic obstructive pulmonary disease with (acute) lower respiratory infection (principal); J18.9 Pneumonia, unspecified organism; Z99.81 Dependence on supplemental oxygen; J44.1 Chronic obstructive pulmonary disease with (acute) exacerbation; I10 Essential (primary) hypertension; F41.9 Anxiety disorder, unspecified; Z87.01 Personal history of pneumonia (recurrent)